=== PATIENT | female | born 2005 | race Asian ===

== ENCOUNTER 2025-02-28 01:08 | Emergency (ER) | payer SELFPAY ==
[2025-02-28] MEDS ORDERED: Ondansetron PF 4 MG/2 ML Vial ONE (01:32)
[2025-02-28 01:41] LABS: #Basophils 0.07 10x3/uL (0.0-0.2); #Eosinophils 0.12 10x3/uL (0.0-0.7); #Monocytes 0.54 10x3/uL (0.11-0.59); #Neutrophils 7.32 10x3/uL (1.40-6.50); %Basophils 0.6 % (0.0-1.0); %Eosinophils 1.1 % (0.0-10.0); %Lymphocytes 25.0 % (28.0-48.0); %Monocytes 5.0 % (0.0-4.0); %Neutrophils 68.0 % (31.0-61.0); Hematocrit 38.3 % (36.0-47.0); Hemoglobin 12.3 g/dL (12.0-16.0); Mean Corpuscular Hemoglobin 27.3 pg (25.0-35.0); Mean Corpuscular Volume 84.9 fL (78.0-98.0); Platelet Count 334 10x3/uL (130-400); Red Blood Cell (RBC) Count 4.51 mill/uL (4.00-5.20); White Blood Cell (WBC) Count 10.78 10x3/uL (4.8-10.8)
[2025-02-28 01:57] LABS: ALT (SGPT) 25 U/L (Less than 34); AST (SGOT) 28 U/L (11-34); Acetaminophen Less than 10 mcg/mL (Less than 10); Albumin 3.9 g/dL (3.1-4.5); Alkaline Phosphatase 74 U/L (40-100); Anion Gap 15 mmol/L (10-20); BUN (Urea Nitrogen) 12 mg/dL (8.4-21.0); Bilirubin, Total 0.1 mg/dL (0.3-1.2); Calc. Creatinine Clearance 0 mL/min (70-130); Calcium 8.6 mg/dL (7.8-10.44); Carbon Dioxide 19 mmol/L (22-29); Chloride 112 mmol/L (98-107); Globulin 3.8 g/dL (2.4-3.5); Glucose 155 mg/dL (70-105); Potassium 4.0 mmol/L (3.5-5.1); Salicylate Less than 8.0 mg/dL (Less than 8.0); Sodium 142 mmol/L (136-145)
== END 2025-02-28 04:20 | disposition home or self-care (01) ==
LOC: EDBD 01:08 → ERS 01:08
DX: S09.90XA Unspecified injury of head, initial encounter (principal); F10.129 Alcohol abuse with intoxication, unspecified; W04.XXXA Fall while being carried or supported by other persons, initial encounter
CPT/HCPCS: 70450; 80053; 80307; 85025; 96374; J2405